=== PATIENT | female | born 1970 | race Hispanic/Latino ===

== ENCOUNTER → 2017-07-06 | Outpatient (CLI) | payer BC | END | disposition home or self-care (01) | LOC: RAH 14:46 | PROVIDERS: ATTEND Internal Medicine | DX: Z12.31 Encounter for screening mammogram for malignant neoplasm of breast (principal) | CPT/HCPCS: 77067 ==

== ENCOUNTER → 2018-09-20 | Outpatient (CLI) | payer BC | END | disposition home or self-care (01) | LOC: RAH 08:01 | PROVIDERS: ATTEND Internal Medicine | DX: Z12.31 Encounter for screening mammogram for malignant neoplasm of breast (principal) | CPT/HCPCS: 77067 ==

== ENCOUNTER → 2019-11-07 | Outpatient (CLI) | payer BC | END | disposition home or self-care (01) | LOC: RAH 08:00 | PROVIDERS: ATTEND Internal Medicine | DX: Z12.31 Encounter for screening mammogram for malignant neoplasm of breast (principal) | CPT/HCPCS: 77067 ==

== ENCOUNTER → 2021-05-02 | Outpatient (CLI) | payer BC | END | disposition home or self-care (01) | LOC: RAH 15:35 | PROVIDERS: ATTEND Internal Medicine | DX: Z12.31 Encounter for screening mammogram for malignant neoplasm of breast (principal) | CPT/HCPCS: 77067 ==

== ENCOUNTER → 2022-05-23 | Outpatient (CLI) | payer BC | END | disposition home or self-care (01) | LOC: RAH 08:22 | PROVIDERS: ATTEND Internal Medicine | DX: Z12.31 Encounter for screening mammogram for malignant neoplasm of breast (principal) | CPT/HCPCS: 77067 ==

== ENCOUNTER → 2023-07-09 | Outpatient (CLI) | payer BC | END | disposition home or self-care (01) | LOC: RAH 08:40 | PROVIDERS: ATTEND Internal Medicine | DX: Z12.31 Encounter for screening mammogram for malignant neoplasm of breast (principal); R92.323 Mammographic fibroglandular density, bilateral breasts | CPT/HCPCS: 77067 ==

== ENCOUNTER → 2024-08-05 | Outpatient (CLI) | payer BC ==
--- NOTE | 2024-08-05 09:04 | HMCIMG ---
Exam Type: MAMMO SCREENING BILATERAL Clinical Information: ANNUAL SCREENING Comparison: July 09, 2023 Technique: Mammogram with CAD was performed with CC and MLO projections. CAD shows no worrisome regions. FINDINGS: The breasts are heterogeneously dense, which may obscure small masses. No dominant mass or suspicious microcalcification identified. There is no nipple retraction or skin thickening. Benign-appearing calcifications are seen. CAD shows no worrisome regions. IMPRESSION: 1. No mammographic signs of malignancy. 2. Routine follow-up recommended. CATEGORY 2: BENIGN FINDINGS Note: A negative x-ray should not delay biopsy if a dominant or clinically suspicious mass is present, since 8-10% of cancers are not identified by mammography. Dense breasts may obscure an underlying neoplasm.
--- NOTE | 2024-08-05 09:53 | HMCIMG ---
BONE DENSITOMETRY: HISTORY: Unspecified menopausal and perimenopausal disorder Comparison: None FINDINGS: BMD measured at AP spine L1-L4 is 1.070 g/cm2 with a T-score of 0.2 Bone density is up to 10% below young normal. This patient is considered normal according to WHO criteria. Fracture risk is low. BMD measured at Left Femoral Neck is 0.812 g/cm2 with a T-score of -0.5 Bone density is up to 10% below young normal. This patient is considered normal according to WHO criteria. Fracture risk is low. BMD measured at Left Femoral Total is 0.936 g/cm2 with a T-score of -0.2 Bone density is up to 10% below young normal. This patient is considered normal according to WHO criteria. Fracture risk is low. IMPRESSION: Normal bone mineral density.
== END | disposition home or self-care (01) ==
LOC: RAH 07:30
PROVIDERS: ATTEND Internal Medicine
DX: Z12.31 Encounter for screening mammogram for malignant neoplasm of breast (principal); R92.333 Mammographic heterogeneous density, bilateral breasts; N95.9 Unspecified menopausal and perimenopausal disorder
CPT/HCPCS: 77067; 77080